=== PATIENT | female | born 1960 | race Caucasian/White ===

== ENCOUNTER 2019-05-07 16:06 | Emergency (ER) | payer MEDICAID, SELFPAY ==
[2019-05-07 16:10] VITALS: BP 150/87; PULSE 87; RESP 16; TEMP 36.7; O2SAT 98; BMI 28.1
--- NOTE | 2019-05-07 16:41 | ED.VISSUMM ---
- ER Visit Summary Date of Service: 05/07/19 Chief Complaint: Sore throat History of Present Illness: The patient is a 59 F who presents with a sore throat that has been getting worse over the past 4 to 5 days. Patient describes her pain is sharp. Patient states she is having a cough with some clear and yellow sputum. Patient denies any fevers or chills. Patient denies any nausea or vomiting. Patient states that today she noted some white exudates on her tonsils as well as over the buccal mucosa bilaterally. Patient states nothing makes her pain better or worse. Physical Examination: Vital signs are stable. Patient is afebrile. Patient is in no acute distress. Oral mucosa is pink and moist. Oropharynx is erythematous. There are some white exudate noted on the tonsils bilaterally. There is also white exudates noted in the buccal mucosa bilaterally. Neck is supple. Trachea is midline. There is no JVD. There is no anterior cervical lymphadenopathy noted. Heart was regular rate and rhythm. Lungs are clear and equal bilaterally. Abdomen is soft and nontender. Test Results: Rapid strep test was obtained and was negative. Emergency Department Course and Treatment: Patient was advised that this is most likely oral candidiasis from her steroid inhalers. Patient was given a prescription for Mycelex troches. Patient was instructed to follow-up with her primary care physician in 5 to 7 days. Patient understood and was agreeable with the plan. All questions were answered. Disposition: Discharge home Impression: Oral candidiasis This note was generated with [employer] dictation software. It may contain incorrect words, spelling, and punctuation that were not noted in review of the chart prior to signing ED Disposition - Plan for ED Patient: Disposition: Home or Assisted Living Diagnosis: Oral candidiasis Instructions: Oral Thrush Referrals: Care Physician,No Primary [Primary Care Provider] - Zafar Benavides MD [STAFF PHYSICIAN] - 3-5 Days
[2019-05-07 19:25] VITALS: BP 134/76; PULSE 87; RESP 19; O2SAT 98
[2019-05-07 19:26] VITALS: RESP 18
== END 2019-05-07 19:27 | disposition home or self-care (01) ==
PROVIDERS: Emergency Provider Emergency Medicine
DX: B37.0 Candidal stomatitis (principal); I10 Essential (primary) hypertension; F41.9 Anxiety disorder, unspecified; F32.9 Major depressive disorder, single episode, unspecified; E03.9 Hypothyroidism, unspecified; E78.00 Pure hypercholesterolemia, unspecified; Z79.899 Other long term (current) drug therapy
CPT/HCPCS: 87880; 99283

== ENCOUNTER → 2020-04-11 13:20 | Outpatient (CLI) | payer MEDICAID, SELFPAY ==
[2020-04-11 13:38] LABS: Absolute Lymphocyte Count 2.67 X10^3/uL (0.83-4.51); Absolute Neutrophil Count 4.9 X10^3/uL (2.0-7.7); Basophil# 0.04 X10^3/uL; Basophil% 0.5 % (0-1); Eosinophil# 0.12 X10^3/uL; Eosinophils% 1.5 % (0-5); Hematocrit 41.6 % (37-47); Hemoglobin 13.7 g/dL (12.0-15.0); Lymphocyte # 2.67 X10^3/ul (4.0); Lymphocyte % 32.3 % (19-41); Mean Corp Hgb Conc 32.9 g/dL (32-36); Mean Corpuscular Hgb 28.3 pg (27.0-32.0); Mean Platelet Vol. 9.5 fl (6.2-12.0); NRBC Flagged by Analyzer 0 % (0-5); Neutrophil # 4.92 X10^3/uL (2.7-7.7); Neutrophil % 59.5 % (47-70); Platelet Count 293 K/mm3 (150-450); RBC Distribution Width CV 12.2 % (11.6-14.6); Red Blood Count 4.84 M/mm3 (4.2-5.4); White Blood Count 8.3 K/mm3 (4.4-11.0)
[2020-04-11 14:12] LABS: Vitamin D,25 Hydroxy 54.1 ng/mL
[2020-04-11 14:36] LABS: AST(SGOT) 24 U/L (15-37); Alanine Aminotransfer ALT/SGPT 29 U/L (13-56); Alkaline Phosphatase 108 U/L (45-117); Anion Gap 6 (5-15); BUN 16 mg/dL (7-18); BUN/Creat Ratio 16.8 RATIO (10-20); Chloride 103 mmol/L (98-107); Cholesterol 240 mg/dL (200); Creatinine, Serum 0.96 mg/dL (0.55-1.02); EST Glomerular Filtration Rate 63 mL/min (>60); Est Glom Filt Rate - Afr Amer 76 mL/min (>60); Globulin 4.2 g/dL (2.2-4.2); Glucose 85 mg/dL (74-106); High Density Lipoprotein 49 mg/dL; Potassium 3.9 mmol/L (3.5-5.1); Protein, Total 8.2 g/dL (6.4-8.2); Sodium Level 137 mmol/L (136-145); T4 Free Direct 1.04 ng/dL (0.76-1.46); Thyroid Stim Hormone (TSH) 1.56 uIU/mL (0.358-3.74); Triglycerides 273 mg/dL; Very Low Density Lipoprotein 55 mg/dL (5-40)
== END ==
PROVIDERS: Referring Provider Family Medicine
DX: I10 Essential (primary) hypertension (principal); E03.9 Hypothyroidism, unspecified; E78.5 Hyperlipidemia, unspecified; F33.0 Major depressive disorder, recurrent, mild; E55.9 Vitamin D deficiency, unspecified
CPT/HCPCS: 36415; 80053; 80061; 82306; 84439; 84443; 85025

== ENCOUNTER → 2020-07-31 12:28 | Outpatient (CLI) | payer MEDICAID, SELFPAY ==
--- NOTE | 2020-07-31 12:31 | BI_ITS ---
MAMMOGRAPHY - BILATERAL SCREENING 3-D TOMOSYNTHESIS REASON FOR EXAM: Female, 60 years old. Routine screening PERTINENT HISTORY: No significant family history. TECHNIQUE: 2-D mammograms and 3-D Tomosynthesis of the breast (s) were performed. CAD was performed. COMPARISON: 2012 FINDINGS: The breast composition is composed of scattered fibroglandular density. Scattered benign calcifications are seen. No dense spiculated masses or suspicious microcalcifications are identified. No architectural distortion is identified. There is no skin thickening or retraction. There has been no significant change since the prior study. BI/SCRN MAMM (CAD)W/FRANCY BILAT IMPRESSION: No mammographic signs of malignancy. Routine yearly mammograms recommended. ASSESSMENT CATEGORY: BIRADS Category 2: Benign. A letter regarding these results will be sent to the patient by the facility within 30 days. FOLLOW UP RECOMMENDATION: Yearly follow up mammogram recommended. (A) Approximately 10% of breast cancers are not detected by mammography. A normal mammogram should not delay biopsy of a clinically suspicious abnormality. Electronically Signed: Lex Clinton MD at 13:39 EDT , Service support ,
== END ==
PROVIDERS: Referring Provider Nurse Practitioner Adult Health; Visit Provider Nurse Practitioner Adult Health
DX: Z12.31 Encounter for screening mammogram for malignant neoplasm of breast (principal)
CPT/HCPCS: 77063; 77067

== ENCOUNTER → 2020-12-14 11:49 | Outpatient (CLI) | payer MEDICAID, SELFPAY ==
[2020-12-14 12:50] LABS: Cholesterol 192 mg/dL (200); High Density Lipoprotein 51 mg/dL; Triglycerides 199 mg/dL; Very Low Density Lipoprotein 40 mg/dL (5-40)
== END ==
PROVIDERS: Referring Provider Nurse Practitioner Adult Health; Visit Provider Nurse Practitioner Adult Health
DX: E78.5 Hyperlipidemia, unspecified (principal)
CPT/HCPCS: 36415; 80061

== ENCOUNTER → 2021-12-27 | Outpatient (CLI) | payer MEDICAID, SELFPAY ==
[2021-12-27 11:27] LABS: Absolute Lymphocyte Count 1.82 X10^3/uL (0.83-4.51); Absolute Neutrophil Count 3.6 X10^3/uL (2.0-7.7); Basophil# 0.05 X10^3/uL; Basophil% 0.8 % (0-1); Eosinophil# 0.12 X10^3/uL; Hematocrit 39.8 % (37-47); Hemoglobin 13.1 g/dL (12.0-15.0); Lymphocyte # 1.82 X10^3/ul (0.83-4.51); Lymphocyte % 29.9 % (19-41); Mean Corp Hgb Conc 32.9 g/dL (32-36); Mean Corpuscular Hgb 28.9 pg (27.0-32.0); Mean Corpuscular Volume 87.7 fL (81-99); Mean Platelet Vol. 9.5 fl (6.2-12.0); Monocyte# 0.52 X10^3/uL; Monocyte% 8.6 % (0-10); NRBC Flagged by Analyzer 0 % (0-5); Neutrophil # 3.55 X10^3/uL (2.7-7.7); Neutrophil % 58.4 % (47-70); Platelet Count 297 K/mm3 (150-450); RBC Distribution Width CV 12.6 % (11.6-14.6); RBC Distribution Width SD 40.6 fl (35.1-43.9); Red Blood Count 4.54 M/mm3 (4.2-5.4); White Blood Count 6.1 K/mm3 (4.4-11.0)
[2021-12-27 12:23] LABS: ALB/GLOB Ratio 0.9 RATIO (0.9-2.4); AST(SGOT) 18 U/L (15-37); Alanine Aminotransfer ALT/SGPT 30 U/L (13-56); Albumin, Serum 3.6 g/dL (3.2-5.0); Alkaline Phosphatase 87 U/L (45-117); Anion Gap 5 (5-15); BUN 16 mg/dL (7-18); BUN/Creat Ratio 19.6 RATIO (10-20); Calcium,Total 9.2 mg/dL (8.5-10.1); Chloride 107 mmol/L (98-107); Cholesterol 192 mg/dL (200); Creatinine, Serum 0.82 mg/dL (0.55-1.02); EST Glomerular Filtration Rate 75 mL/min (>60); Est Glom Filt Rate - Afr Amer 91 mL/min (>60); Glucose 79 mg/dL (74-106); High Density Lipoprotein 60 mg/dL; Potassium 4.1 mmol/L (3.5-5.1); Protein, Total 7.6 g/dL (6.4-8.2); Sodium Level 140 mmol/L (136-145); Triglycerides 118 mg/dL; Very Low Density Lipoprotein 24 mg/dL (5-40)
[2021-12-30 19:38] LABS: Vitamin D 1,25-Dihydroxy 59.1 pg/mL (24.8-81.5)
== END | disposition home or self-care (01) ==
DX: I10 Essential (primary) hypertension (principal); E03.9 Hypothyroidism, unspecified; E78.5 Hyperlipidemia, unspecified; E55.9 Vitamin D deficiency, unspecified
CPT/HCPCS: 36415; 80053; 80061; 82652; 84443; 85025

== ENCOUNTER → 2022-09-08 | Outpatient (CLI) | payer MEDICAID, SELFPAY ==
--- NOTE | 2022-09-08 10:11 | BI_ITS ---
MAMMOGRAPHY - BILATERAL SCREENING REASON FOR EXAM: Female, 62 years old. Routine annual screening examination. PERTINENT HISTORY: Grandmother with breast cancer. TECHNIQUE: Digital bilateral breast francy (3D mammographic acquisition) in the CC and MLO projections. 2-D mediolateral oblique (MLO) and craniocaudad (CC) views of both breasts were obtained. CAD: Full Field Digital Mammography with Computer Added Detection was performed. COMPARISON: Comparison is made with prior study of July 31, 2020 and August 15, 2011. FINDINGS: Breast Composition: There are scattered areas of fibroglandular density. There are no dominant masses or suspicious calcifications. No other significant abnormalities are identified. There has been no significant change since the prior study. BI/SCRN MAMM (CAD)W/FRANCY BILAT IMPRESSION: Stable bilateral screening mammogram. Yearly follow-up mammogram recommended. (A) ASSESSMENT CATEGORY: BIRADS Category 1: Negative. A letter regarding these results will be sent to the patient by the facility within 30 days. Approximately 10% of breast cancers are not detected by mammography. A normal mammogram should not delay biopsy of a clinically suspicious abnormality. [id number] Electronically Signed: Beto Love MD at 12:14 EDT ,
== END | disposition home or self-care (01) ==
LOC: OPBI 10:08
PROVIDERS: Referring Provider Nurse Practitioner Family; Visit Provider Nurse Practitioner Family
DX: Z12.31 Encounter for screening mammogram for malignant neoplasm of breast (principal); Z80.3 Family history of malignant neoplasm of breast
CPT/HCPCS: 77063; 77067

== ENCOUNTER 2023-03-05 19:55 | Emergency (ER) | payer MEDICAID, SELFPAY ==
[2023-03-05 19:56] VITALS: BP 186/124; PULSE 68; RESP 16; TEMP 36.6; O2SAT 98; BMI 27.6
--- NOTE | 2023-03-05 20:49 | EKG12_ITS ---
Test Reason : CP Blood Pressure : / mmHG Vent. Rate : 063 BPM Atrial Rate : 063 BPM P-R Int : 188 ms QRS Dur : 094 ms QT Int : 412 ms P-R-T Axes : 065 043 063 degrees QTc Int : 421 ms Normal sinus rhythm Nonspecific ST abnormality Abnormal ECG Confirmed by AMANDA PUTNAM, STEF ([id number]), film editor NORMA PAULINO ([id number]) on 03/06/2023 2:03:58 PM Referred By: Confirmed By:STEF PATEL MD
--- NOTE | 2023-03-05 21:25 | RAD_ITS ---
EXAM: XR CHEST, 1 VIEW CLINICAL INDICATION: chest pain TECHNIQUE: Frontal view of the chest. COMPARISON: No relevant prior studies available. FINDINGS: LUNGS AND PLEURAL SPACES: Biapical scarring. No consolidation or edema. No pneumothorax. No effusion. HEART: Unremarkable. Cardiac silhouette not enlarged. MEDIASTINUM: Central airways and mediastinal contour are unremarkable. BONES/JOINTS: Degenerative changes of the spine and acromioclavicular joints. No acute fracture. SOFT TISSUES: Unremarkable. RAD/Chest 1 View (Portable) IMPRESSION: No radiographic evidence of acute cardiopulmonary disease. Electronically Signed: Rodriguez Clark MD at 21:56 EST ,
[2023-03-05 21:27] LABS: Absolute Neutrophil Count 5.1 X10^3/uL (2.0-7.7); Basophil# 0.05 X10^3/uL; Basophil% 0.6 % (0-1); Eosinophil# 0.23 X10^3/uL; Eosinophils% 2.8 % (0-5); Hematocrit 40.2 % (37-47); Hemoglobin 13.2 g/dL (12.0-15.0); Lymphocyte % 28.7 % (19-41); Mean Corp Hgb Conc 32.8 g/dL (32-36); Mean Corpuscular Hgb 27.9 pg (27.0-32.0); Mean Platelet Vol. 9.7 fl (6.2-12.0); Monocyte# 0.58 X10^3/uL; Monocyte% 6.9 % (0-10); NRBC Flagged by Analyzer 0 % (0-5); Neutrophil # 5.05 X10^3/uL (2.7-7.7); Neutrophil % 60.5 % (47-70); Platelet Count 278 K/mm3 (150-450); RBC Distribution Width CV 11.8 % (11.6-14.6); RBC Distribution Width SD 36.2 fl (35.1-43.9); Red Blood Count 4.73 M/mm3 (4.2-5.4); White Blood Count 8.4 K/mm3 (4.4-11.0)
[2023-03-05 21:48] LABS: Anion Gap 4 (5-15); BUN 18 mg/dL (7-18); BUN/Creat Ratio 23.3 RATIO (10-20); Calcium,Total 9.8 mg/dL (8.5-10.1); Chloride 108 mmol/L (98-107); Creatinine, Serum 0.77 mg/dL (0.55-1.02); EST Glomerular Filtration Rate 80 mL/min (>60); Est Glom Filt Rate - Afr Amer 97 mL/min (>60); Estimated Creatinine Clearance 70.01 ml/min; Glucose 85 mg/dL (74-106); Potassium 3.5 mmol/L (3.5-5.1); Sodium Level 142 mmol/L (136-145); Troponin-I HS (w/2H Reflex) 6 pg/mL (3.0-54.0)
[2023-03-05 21:56] VITALS: BP 182/113; PULSE 61; RESP 19; O2SAT 99
--- NOTE | 2023-03-05 22:44 | EX.ED.DYSGE1 ---
HPI History of Present Illness Chief Complaint: Hypertension Narrative Narrative: 62-year-old female presenting for evaluation of elevated blood pressure. Patient states she normally takes lisinopril 5 mg p.o. daily and she also takes clonidine 0.3 mg daily as well at night to help with menopause symptoms. [facility]. Patient was over there today and noted that her blood pressure was 138/88 is concerned with how high this was so she checked her blood pressure again and it was 170/100. Patient states she does not have any chest pain or shortness of breath. No nausea or vomiting. She is not having severe headaches. She is not dizzy or lightheaded. [facility] Medical History (Updated 03/05/23 @ 22:53 by Kristina Zambrano) Hypertension Home Medications cetirizine 10 mg tablet 10 mg PO DAILY PRN Allergies 05/07/19 [History Last Taken Unknown] clonidine HCl 0.3 mg tablet 0.3 mg PO DAILY 05/07/19 [History Last Taken Unknown] clotrimazole 10 mg chastity 10 mg MUCOUS MEM 5X/DAY ##30 05/07/19 [Rx Last Taken Unknown] levothyroxine 88 mcg tablet 88 mcg PO DAILY 05/07/19 [History Last Taken Unknown] lisinopril 5 mg tablet 5 mg PO DAILY 05/07/19 [History Last Taken Unknown] pravastatin 40 mg tablet 40 mg PO QHS 05/07/19 [History Last Taken Unknown] trazodone 100 mg tablet 150 mg PO QHS 05/07/19 [History Last Taken Unknown] venlafaxine 37.5 mg capsule,extended release 24 hr 75 mg PO BID 05/07/19 [History Last Taken Unknown] Allergy/AdvReac Type Severity Reaction Status Date / Time No Known Allergies Allergy Verified 03/05/23 19:59 Social History Smoking Status: Former smoker ROS ROS ED Review of Systems ROS Unobtainable: due to encephalopathy Constitutional Constitutional ED: Denies chills or fever(s) Eyes Eyes: Denies change in vision or diplopia ENT ENT ED: Denies rhinorrhea or sore throat Cardiovascular Cardiovascular: Denies chest pain or palpitations Respiratory/Chest Respiratory/Chest: Denies cough or dyspnea Gastrointestinal Gastrointestinal: Denies abdominal pain, constipation or nausea Genitourinary Genitourinary ED: Denies dysuria or hematuria Musculoskeletal Musculoskeletal: Denies arthralgias Integumentary Denies abscess or Abrasions Neurologic Neurologic: Denies headache(s) or paresthesias Psychiatric Psychiatric: Reports anxiety; Denies depression or suicidal ideation EXAM Physical Exam Const Vital Signs: 03/05/23 19:56 03/05/23 21:56 03/05/23 22:52 Temperature 97.9 F Temperature Source Temporal Pulse Rate 68 61 Respiratory Rate 16 19 H Respiratory Effort Respiratory Pattern Blood Pressure 186/124 H 182/113 H Blood Pressure Mean 144 136 Pulse Ox 98 99 97 Oxygen Delivery Method Room Air Room Air Room Air 03/05/23 22:52 03/05/23 23:00 03/05/23 23:34 Temperature Temperature Source Pulse Rate 62 62 Respiratory Rate 14 18 Respiratory Effort Normal Respiratory Pattern Normal Blood Pressure 173/110 H 173/110 H Blood Pressure Mean 131 131 Pulse Ox 98 98 Oxygen Delivery Method Room Air Positive well nourished General Appearance ED: NAD; Negative for pallor HEENT Reports moist mucous membranes Eyes PERRL and EOMs intact bilaterally Chest Wall inspection of chest normal Resp normal respiratory effort Auscultation: Negative for rales, rhonchi or wheezes Cardio regular rate and regular rhythm GI normal to inspection, nondistended, normoactive bowel sounds Extremity normal to inspection Neuro oriented x3 and CN's II-XII intact bilaterally Sensorium / Orientation: alert Psych mental status grossly normal Skin no rashes or lesions noted and no wounds General Skin Exam: Negative for jaundice or pallor MDM MDM MDM Narrative Medical decision making narrative: 62-year-old female presenting with elevated blood pressures. Her arrival blood pressure is 186/124. She states it was 170/100 prior to coming and was lower than that earlier but she states she felt like she was anxious about her blood pressure being high. She takes lisinopril 5 mg daily and clonidine at night for symptom control of menopause. Differential includes menopause, hypertension, anxiety, dehydration, electro abnormalities, dysrhythmia. CBC was obtained to assess white blood cell count, hemoglobin, platelets. BMP to assess renal function, electrolytes. High-sensitivity troponin and EKG to assess for ischemia/dysrhythmia. Chest x-ray was obtained to assess for pneumonia. Patient not having any symptoms and currently comfortable. We put her monitor with her blood pressure to be cycled. She was given her nighttime dose of clonidine which she normally takes for menopause symptoms and as she states she missed this about 2 hours ago. Lab work was unremarkable. High-sensitivity troponin was 6. EKG on my interpretation shows normal sinus rhythm with a ventricular rate of 63 bpm without sign of ischemic change or ectopy on my interpretation. Patient's blood pressure came down to 170/100. She wanted to leave at this point. She states she can take her clonidine at home. I feel this is reasonable as the patient's blood pressure is likely falsely elevated as the patient is very anxious today and she reports that she had a normal blood pressure earlier before coming in. Patient will be discharged home with instructions to keep blood pressure diary and return precautions were discussed. Impression: 1. Hypertension Lab Data Labs: Laboratory Results - last 24 hr 03/05/23 21:16 WBC 8.4 RBC 4.73 Hgb 13.2 Hct 40.2 MCV 85.0 MCH 27.9 MCHC 32.8 RDW Std Deviation 36.2 RDW Coeff of Karen 11.8 Plt Count 278 MPV 9.7 Immature Gran % (Auto) 0.500 Neut % (Auto) 60.5 Lymph % (Auto) 28.7 [place] % (Auto) 6.9 Eos % (Auto) 2.8 Baso % (Auto) 0.6 Absolute Neuts (auto) 5.1 Absolute Lymphs (auto) 2.40 Nucleated RBC % 0 Sodium 142 Potassium 3.5 Chloride 108 H Carbon Dioxide 30.0 Anion Gap 4 L BUN 18 Creatinine 0.77 Estim Creat Clear Calc 70.01 Est GFR (MDRD) Af Amer 97 Est GFR (MDRD) Non-Af 80 BUN/Creatinine Ratio 23.3 H Glucose 85 Calcium 9.8 Troponin I High Sens 6 Radiography Diagnostic Testing: Clinical Impression(s) from Imaging Studies Chest X-Ray 03/05/23 21:25 IMPRESSION: No radiographic evidence of acute cardiopulmonary disease. Electronically Signed: Rodriguez Clark MD at 21:56 EST , Discharge Plan Triage Chief Complaint: Hypertension ED Provider: Joey Madsen Dx/Rx/DC Orders Instructions: ED Hypertension, Established Prescriptions: No Action venlafaxine 37.5 MG capsule 75 mg PO BID cetirizine 10 MG tablet 10 mg PO DAILY PRN (Reason: Allergies) pravastatin 40 MG tablet 40 mg PO QHS clonidine HCl 0.3 mg tablet 0.3 mg PO DAILY levothyroxine 88 MCG tablet 88 mcg PO DAILY trazodone 100 MG tablet 150 mg PO QHS lisinopril 5 MG tablet 5 mg PO DAILY clotrimazole 10 MG chastity 10 mg MUCOUS MEM 5X/DAY Qty: 30 0RF Primary Care Provider: [facility] Miah Gallagher Referrals: [facility],Miah Morales [Primary Care Provider] - Disposition Disposition: Home, Self Care Discharge Date/Time: 03/05/23 23:36
[2023-03-05 22:52] VITALS: O2SAT 97
[2023-03-05 23:00] VITALS: BP 173/110; PULSE 62; RESP 14; O2SAT 98
[2023-03-05 23:24] LABS: Reflex Troponin-HS? (from REC) Y
[2023-03-05 23:34] VITALS: BP 173/110; PULSE 62; RESP 18; O2SAT 98
== END 2023-03-05 23:36 | disposition home or self-care (01) ==
PROVIDERS: Emergency Provider Student in an Organized Health Care Education/Training Program; Visit Provider Student in an Organized Health Care Education/Training Program
DX: I10 Essential (primary) hypertension (principal); Z87.891 Personal history of nicotine dependence; Z79.899 Other long term (current) drug therapy
CPT/HCPCS: 71045; 80048; 84484; 85025; 93005; 99283; A4216

== ENCOUNTER → 2023-03-23 | Outpatient (CLI) | payer MEDICAID, SELFPAY ==
[2023-03-23 09:56] LABS: Absolute Lymphocyte Count 2.59 X10^3/uL (0.83-4.51); Absolute Neutrophil Count 5.2 X10^3/uL (2.0-7.7); Basophil# 0.06 X10^3/uL; Basophil% 0.7 % (0-1); Eosinophil# 0.17 X10^3/uL; Eosinophils% 1.9 % (0-5); Hematocrit 42.5 % (37-47); Hemoglobin 13.7 g/dL (12.0-15.0); Lymphocyte # 2.59 X10^3/ul (0.83-4.51); Lymphocyte % 29.5 % (19-41); Mean Corp Hgb Conc 32.2 g/dL (32-36); Mean Corpuscular Hgb 27.3 pg (27.0-32.0); Mean Corpuscular Volume 84.8 fL (81-99); Mean Platelet Vol. 9.5 fl (6.2-12.0); NRBC Flagged by Analyzer 0 % (0-5); Neutrophil % 59.3 % (47-70); Platelet Count 340 K/mm3 (150-450); RBC Distribution Width CV 11.9 % (11.6-14.6); RBC Distribution Width SD 35.6 fl (35.1-43.9); Red Blood Count 5.01 M/mm3 (4.2-5.4); White Blood Count 8.8 K/mm3 (4.4-11.0)
--- OUTSIDE RECORDS SUMMARY | 2023-03-23 09:57 | XMS RPT_ITS | CCD ---
Author Name Unknown Address [address] [place] [address] Organization [facility] Care Team Providers Care Trolley Operator Name Role Phone Meli Miller CNP Unavailable MARCIAON SERRATO Referring Unavailable Meli Miller CNP Unavailable Medications Current Medications Medication Drug Class(es) Dates Sig (Normalized) Sig (Original) amoxicillin 875 mg / clavulanate 125 mg oral tablet (4 sources) Penicillin-class Antibacterial Start: 01-25-2022 End: 01-30-2022 take 1 tablet by mouth twice daily amoxicillin-clavu lanic acid (AUGMENTIN) 875-125 mg per tablet Indications: Acute non-recurrent sinusitis, unspecified location Take 1 tablet by mouth twice daily for 5 days. 10 tablet 0 01/25/2022 01/30/2022 Active Completed/Discontinued Medications Medication Drug Class(es) Dates Sig (Normalized) Sig (Original) cetirizine hydrochloride 10 mg oral tablet (5 sources) Histamine-1 Receptor Antagonist Start: 09-02-2019 take 1 tablet by mouth once daily cetirizine (ZYRTEC) 10 mg tablet Indications: Seasonal allergic rhinitis, unspecified trigger Take 1 tablet by mouth once daily. 30 tablet 0 09/02/2019 Active Problems Active Problems Problem Classification Problem Date Documented Da te Episodic/Chronic Disorders of teeth and jaw (1 source) Toothache; Translations: [Other specified disorders of teeth and supporting structures] Episodic Nausea and vomiting (1 source) Vomiting without nausea; Translations: [Vomiting without nausea] Episodic Other lower respiratory disease (1 source) Cough; Translations: [Acute cough] Episodic Other nervous system disorders (1 source) Other chronic pain; Translations: [Neck pain, chronic] Onset: 10-17-2021 Chronic Other upper respiratory infections (2 sources) Acute upper respiratory infection; Translations: [Acute upper respiratory infection, unspecified] Episodic Past or Other Problems Problem Classification Problem Date Documented Da te Episodic/Chronic Spondylosis; intervertebral disc disorders; other back problems (2 sources) Chronic neck pain; Translations: [Cervicalgia] Onset: 10-17-2021 Episodic Results Test Name Value Interpretation Reference Range Facil ity Vital Signs Date Time Vital Sign Value Performing Clinician Mickiei daniele 01-25-2022 12:37-0500 Body temperature 97 [degF] Marciano Serrato MD Work Phone: [facility] 01-25-2022 12:37-0500 Body weight 74.48 kg Marciano Serrato MD Work Phone: [facility] 01-25-2022 12:37-0500 Diastolic blood pressure 98 mm[Hg] Marciano Serrato MD Work Phone: [facility] 01-25-2022 12:37-0500 Heart rate 73 /min Marciano Serrato MD Work Phone: [facility] 01-25-2022 12:37-0500 Respiratory rate 20 /min Marciano Serrato MD Work Phone: [facility] 01-25-2022 12:37-0500 SaO2% (BldA) [Mass fraction] 98 % Marciano Serrato MD Work Phone: [facility] 01-25-2022 12:37-0500 Systolic blood pressure 148 mm[Hg] Marciano Serrato MD Work Phone: [facility] 11-04-2021 09:57-0400 Body temperature 98.8 [degF] Belén Florence APRN.HOME SCHOOL LIAISON OFFICER Work Phone: [facility] 11-04-2021 09:57-0400 Body weight 72.58 kg Belén Florence APRN.HOME SCHOOL LIAISON OFFICER Work Phone: [facility] 11-04-2021 09:57-0400 Diastolic blood pressure 80 mm[Hg] Belén Florence HVAC SERVICE TECH.HOME SCHOOL LIAISON OFFICER Work Phone: [facility] 11-04-2021 09:57-0400 Heart rate 88 /min Belén Florence HVAC SERVICE TECH.HOME SCHOOL LIAISON OFFICER Work Phone: [facility] 11-04-2021 09:57-0400 Respiratory rate 16 /min Belén Florence HVAC SERVICE TECH.HOME SCHOOL LIAISON OFFICER Work Phone: [facility] 11-04-2021 09:57-0400 SaO2% (BldA) [Mass fraction] 98 % Belén Florence HVAC SERVICE TECH.HOME SCHOOL LIAISON OFFICER Work Phone: [facility] 11-04-2021 09:57-0400 Systolic blood pressure 122 mm[Hg] Belén Florence HVAC SERVICE TECH.HOME SCHOOL LIAISON OFFICER Work Phone: [facility] 10-17-2021 12:08-0400 Body temperature 98.6 [degF] Marciano Serrato MD Work Phone: [facility] 10-17-2021 12:08-0400 Body weight 72.21 kg Marciano Serrato MD Work Phone: [facility] 10-17-2021 12:08-0400 Diastolic blood pressure 82 mm[Hg] Marciano Serrato MD Work Phone: [facility] 10-17-2021 12:08-0400 Heart rate 88 /min Marciano Serrato MD Work Phone: [facility] 10-17-2021 12:08-0400 Respiratory rate 18 /min Marciano Serrato MD Work Phone: [facility] 10-17-2021 12:08-0400 SaO2% (BldA) [Mass fraction] 97 % Marciano Serrato MD Work Phone: [facility] 10-17-2021 12:08-0400 Systolic blood pressure 124 mm[Hg] Marciano Serrato MD Work Phone: [facility] Encounters Encounter Date Encounter Type Care Provider Facility Start: 01-26-2022 Telephone encounter Renée Kameron Quinonez HVAC SERVICE TECH.HOME SCHOOL LIAISON OFFICER Work Phone: [facility] Plan of Treatment Date Care Activity Detail Author Start: 08-24-2029 Urine microalbumin profile DTAP,TDAP,TD (2 - Td or Tdap) [facility] Start: 01-25-2022 End: 02-08-2022 SARS-CoV-2 (COVID-19) RNA [Presence] in Respiratory specimen by LOBO with probe detection 2019 CORONAVIRUS Microbiology Routine URI, acute Acute non-recurrent sinusitis, unspecified location Expected: 01/25/2022, Expires: 02/08/[address] [facility] Work Phone: Immunizations Immunization Date Immunization Notes Care Provider Fa cilikumar 08-25-2019 tetanus toxoid, redu traci diphtheria toxoid, and acellular pertussis vaccine, adsorbed Marciano Serrato MD Work Phone: [facility] Payers Date Payer Category Payer Medicaid [employer] [facility] [id number] 2015-Present [phone] [address] [place] [address] Medicaid [id number] 2015 Medicaid [id number] 2015 Medicaid [id number] Social History Date Type Detail Facility Start: 10-02-2015 End: 11-04-2021 Tobacco smoking status NHIS Never smoked tobacco [facility] Start: 10-02-2015 End: 11-04-2021 Tobacco use and exposure Smokeless tobacco non-user [facility] Start: 10-17-2021 End: 01-25-2022 Alcohol intake Lifetime non-drinker (finding) [facility] Start: 10-17-2021 History SDOH Alcohol Frequency 1 [facility] Start: 1960 Sex Assigned At Not on file C [facility] Start: 10-07-2021 End: 11-04-2021 Exposure to SARS-CoV-2 (event) Not sure [facility] Clinical Notes 10-17-2021 to 01-26-2022 Telephone Encounter - Carmen Farr LPN - 01/26/2022 3:40 PM ESTTelephone Encounter - Carmen Farr LPN - 01/26/2022 12:43 PM Mello Serrato MD - 01/25/2022 12:56 PM ESTPatient Instructions Note Date & Type Note [facility] 01-26-2022 Miscellaneous Notes Phone call placed, provider advised current ATB, Robitussin continue as advised no additional Rx sent. Patient verbalized understanding, agreed with plan of care. Carmen Farr LPN documented in this encounter [facility] 01-26-2022 Miscellaneous Notes Phone call received patient advised (see prior provider encounter) Patient verbalized understanding, reported coughing all night taking Robitussin, unrelieved sxs, currently no PCP requested Rx to be sent to [facility]. Carmen Farr LPN documented in this encounter [facility] 01-25-2022 Note HNO ID: [id number] Author: Marciano Serrato MD Service: ? Author Type: Physician Type: Progress Notes Filed: 01/25/2022 2:52 PM Note Text: Patient presents with: Cough: ST x2 weeks HPI: Feeling sick for over a week. Cough and sore throat symptoms worsening the last 3 days. Positive symptoms: Cough, Sore throat, Sinus pressure, Nasal Congestion, Rhinorrhea, Post nasal drainage, Feverish, Chills, Fatigue, Negative symptoms: Shortness of breath, Chest tightness, Headache, Nausea, Vomiting, Diarrhea, OTC: Johann Has not had known COVID infection. PAST MEDICAL HISTORY Diagnosis Date Anxiety and depression Hyperlipidemia Hypertension Hypothyroidism MEDICATIONS: Current Outpatient Medications Medication Sig levothyroxine (SYNTHROID) 75 mcg tablet Take 75 mcg by mouth once daily. lisinopril (ZESTRIL, PRINIVIL) 5 mg tablet Take by mouth. pravastatin (PRAVACHOL) 40 mg tablet Take by mouth. traZODone (DESYREL) 100 mg tablet Take by mouth. venlafaxine ER (EFFEXOR XR) 37.5 mg 24 hr capsule Take by mouth. cloNIDine HCl (CATAPRES) 0.3 mg tablet DAILY ibuprofen (MOTRIN ORAL) Take by mouth. cetirizine (ZYRTEC) 10 mg tablet Take 1 tablet by mouth once daily. No current facility-administered medications for this visit. ALLERGIES: ALLERGIES No Known Allergies VITALS: BP 148/98 Pulse 73 Temp 36.1 ?C (97 ?F) Resp 20 Wt 74.5 kg (164 lb 3.2 oz) SpO2 98% PHYSICAL EXAM: GEN: mildly ill appearing HEENT: PERRL, EOMI, conjunctiva clear Ears: canals clear. TMs without erythema, bulge, or effusion Sinuses: non-tender frontal sinus, non-tender maxillary sinuses Throat: moist mucous membranes, mild erythema, no exudate Neck: supple, no thyromegaly, no lymphadenopathy HEART: regular rate and rhythm, no murmurs LUNGS: clear to auscultation, no wheezes or crackles, no increased WOB ASSESSMENT/PLAN: 1. URI, acute - ICD9: 465.9, ICD10: J06.9 (primary diagnosis) - suspect new viral URI, differential includes COVID-19 and secondary bacterial infection - Discussed supportive care treatment with home isolation, rest, cold medicine, and analgesia. - Red flags to seek further treatment include chest pain, shortness of breath, and lethargy; in the ER if severe. - 2019 CORONAVIRUS 2. Acute non-recurrent sinusitis, unspecified location - ICD9: 461.9, ICD10: J01.90 - AMOXICILLIN 875 MG-POTASSIUM CLAVULANATE 125 MG TABLET - 2019 CORONAVIRUS Marciano Serrato MD [facility] 01-25-2022 History of Presen t illness Narrative Patient presents with: Cough: ST x2 weeks HPI: Feeling sick for over a week. Cough and sore throat symptoms worsening the last 3 days. Positive symptoms: Cough, Sore throat, Sinus pressure, Nasal Congestion, Rhinorrhea, Post nasal drainage, Feverish, Chills, Fatigue, Negative symptoms: Shortness of breath, Chest tightness, Headache, Nausea, Vomiting, Diarrhea, OTC: Robitussin Has not had known COVID infection. PAST MEDICAL HISTORY Diagnosis Date Anxiety and depression Hyperlipidemia Hypertension Hypothyroidism MEDICATIONS: Current Outpatient Medications Medication Sig levothyroxine (SYNTHROID) 75 mcg tablet Take 75 mcg by mouth once daily. lisinopril (ZESTRIL, PRINIVIL) 5 mg tablet Take by mouth. pravastatin (PRAVACHOL) 40 mg tablet Take by mouth. traZODone (DESYREL) 100 mg tablet Take by mouth. venlafaxine ER (EFFEXOR XR) 37.5 mg 24 hr capsule Take by mouth. cloNIDine HCl (CATAPRES) 0.3 mg tablet DAILY ibuprofen (MOTRIN ORAL) Take by mouth. cetirizine (ZYRTEC) 10 mg tablet Take 1 tablet by mouth once daily. No current facility-administered medications for this visit. ALLERGIES: ALLERGIES No Known Allergies VITALS: BP 148/98 Pulse 73 Temp 36.1 C (97 F) Resp 20 Wt 74.5 kg (164 lb 3.2 oz) SpO2 98% PHYSICAL EXAM: GEN: mildly ill appearing HEENT: PERRL, EOMI, conjunctiva clear Ears: canals clear. TMs without erythema, bulge, or effusion Sinuses: non-tender frontal sinus, non-tender maxillary sinuses Throat: moist mucous membranes, mild erythema, no exudate Neck: supple, no thyromegaly, no lymphadenopathy HEART: regular rate and rhythm, no murmurs LUNGS: clear to auscultation, no wheezes or crackles, no increased WOB ASSESSMENT/PLAN: 1. URI, acute - ICD9: 465.9, ICD10: J06.9 (primary diagnosis) - suspect new viral URI, differential includes COVID-19 and secondary bacterial infection - Discussed supportive care treatment with home isolation, rest, cold medicine, and analgesia. - Red flags to seek further treatment include chest pain, shortness of breath, and lethargy; in the ER if severe. - 2019 CORONAVIRUS 2. Acute non-recurrent sinusitis, unspecified location - ICD9: 461.9, ICD10: J01.90 - AMOXICILLIN 875 MG-POTASSIUM CLAVULANATE 125 MG TABLET - 2019 CORONAVIRUS Marciano Serrato MD documented in this encounter [facility] 11-04-2021 Note HNO ID: [id number] Author: Belén Florence APRN.HOME SCHOOL LIAISON OFFICER Service: ? Author Type: Nurse Practitioner Type: Progress Notes Filed: 11/04/2021 10:51 AM Note Text: This note was created using VidBidriter. Subjective Jose Trinh is a 61 year old female. 61 year old female with PMH hypothyroid, HTN and depression presents with complaints of dental pain. Acute onset months ago Lower tooth States that her lower tooth has been cracked. +pain and sensitivity +enlarged left lymph node States she has been using specialized tooth paste, Anbesol, Denies inability to open or close. Denies difficulty handling secretions. Denies fever or chills. States that she has an appointment with dentist at end of November. The history is provided by the patient. No speech language therapist was used. Dental Problem This is a new problem. The current episode started more than 1 month ago. The problem occurs constantly. The problem has been gradually worsening. Associated symptoms include swollen glands. Pertinent negatives include no abdominal pain, anorexia, arthralgias, change in bowel habit, chest pain, chills, congestion, coughing, diaphoresis, fatigue, fever, headaches, joint swelling, myalgias, nausea, neck pain, numbness, rash, sore throat, urinary symptoms, vertigo, visual change, vomiting or weakness. Nothing aggravates the symptoms. She has tried acetaminophen (anbesol) for the symptoms. The treatment provided no relief. PAST MEDICAL HISTORY Diagnosis Date Anxiety and depression Hyperlipidemia Hypertension Hypothyroidism PAST SURGICAL HISTORY Procedure Laterality Date APPENDECTOMY ALLERGIES Patient has no known allergies. MEDICATIONS ibuprofen (MOTRIN ORAL) Take by mouth. cyclobenzaprine (FLEXERIL) 10 mg tablet Take 1 tablet by mouth three times daily as needed. cetirizine (ZYRTEC) 10 mg tablet Take 1 tablet by mouth once daily. LISINOPRIL ORAL Take by mouth. TRAZODONE HCL (TRAZODONE ORAL) Take by mouth. PRAVASTATIN SODIUM (PRAVASTATIN ORAL) Take by mouth. LEVOTHYROXINE SODIUM (LEVOTHYROXINE ORAL) Take by mouth. cloNIDine HCl (CATAPRES) 0.3 mg tablet Take 0.3 mg by mouth twice daily. VENLAFAXINE HCL (EFFEXOR XR ORAL) Take by mouth. amoxicillin-clavulanic acid (AUGMENTIN) 875-125 mg per tablet Take 1 tablet by mouth twice daily for 7 days. No family history on file. Social History Tobacco Use Smoking status: Never Smokeless tobacco: Never Substance Use Topics Alcohol use: Never Drug use: Never Review of Systems Constitutional: Negative for chills, diaphoresis, fatigue and fever. HENT: Positive for dental problem. Negative for congestion, postnasal drip, sinus pressure, sinus pain and sore throat. Eyes: Negative for photophobia, pain, discharge, redness and itching. Respiratory: Negative for apnea, cough, choking and chest tightness. Cardiovascular: Negative for chest pain, palpitations and leg swelling. Gastrointestinal: Positive for anal bleeding. Negative for abdominal pain, anorexia, change in bowel habit, constipation, diarrhea, nausea and vomiting. Musculoskeletal: Negative for arthralgias, joint swelling, myalgias and neck pain. Skin: Negative for color change, pallor and rash. Allergic/Immunologic: Negative for environmental allergies, food allergies and immunocompromised state. Neurological: Negative for dizziness, vertigo, facial asymmetry, weakness, light-headedness, numbness and headaches. Hematological: Negative for adenopathy. Does not bruise/bleed easily. Psychiatric/Behavioral: Negative for agitation and behavioral problems. Objective BP 122/80 Pulse 88 Temp 37.1 ?C (98.8 ?F) Resp 16 Wt 72.6 kg (160 lb) SpO2 98% Physical Exam Vitals and nursing note reviewed. Constitutional: General: She is not in acute distress. Appearance: Normal appearance. She is normal weight. She is not ill-appearing, toxic-appearing or diaphoretic. HENT: Head: Normocephalic and atraumatic. Right Ear: Ear canal and external ear normal. Left Ear: Ear canal and external ear normal. Nose: Nose normal. No congestion or rhinorrhea. Mouth/Throat: Mouth: Mucous membranes are moist. Pharynx: No oropharyngeal exudate or posterior oropharyngeal erythema. Eyes: General: Right eye: No discharge. Left eye: No discharge. Extraocular Movements: Extraocular movements intact. Conjunctiva/sclera: Conjunctivae normal. Pupils: Pupils are equal, round, and reactive to light. Cardiovascular: Rate and Rhythm: Normal rate and regular rhythm. Pulses: Normal pulses. Heart sounds: Normal heart sounds. No murmur heard. No friction rub. Pulmonary: Effort: Pulmonary effort is normal. No respiratory distress. Breath sounds: Normal breath sounds. No stridor. No wheezing, rhonchi or rales. Chest: Chest wall: No tenderness. Abdominal: General: Abdomen is flat. There is no distension. Palpations: Abdomen is soft. There is no mass. Tende (more content not included)... [facility] 11-04-2021 Instructions Belén Florence APRN.HOME SCHOOL LIAISON OFFICER - 11/04/2021 10:09 AM EDT Dental Care Services Here are low cost places you can go for dental care: [facility] [address] [facility]- [phone] Services:Extractions only- No wisdom teeth Hours: - 4:15 P.M. Fee: Free- Donations are accepted [facility]) [address] [facility] ([address]) Services: Health history, exam, cleaning, X-Rays, patient education and nutritional counseling. Hours: Varies with the school year. By appointment only. Fee: Over 12 years of age, $10.00; Under 12 year of age $6.00 [facility] [address] [facility] ([facility]): [phone] [facility]): [phone] (Note: These are the only [facility] which offer dental services) Services: Full dental services Hours: 8:30 a.m. to 5:30 p.m., Thursday through Thursday. By appointment. Fee: Sliding Scales and Medicaid. Bring ID and proof of income. [facility] [address] [phone]) Services: Full dental services. Hours: By appointment only. Fee: [place] and Medicaid. Bring ID and proof of income. [facility] [address] [phone] Services: Full dental services. Hours: 8:15 a.m.- 5:00 p.m. By appointment only. Fee: Flat fee. Medicaid and insurances. Bring ID and proof of income. [facility]: By main entrance of [facility] [phone] Services: Full dental services. Hours:Varies with school year. Call for appointment. Fee: Flat fee. Medicaid and insurances. Bring ID and proof of income. [facility] [address] (Between [place] and [place]) [phone] Services: Full dental services. Hours: 8:30 a.m.-4:00 p.m. Thursday through Thursday. Appointments recommended. Emergency walk ins- 8:30 a.m.- 11:15 a.m. and 2:00 p.m-3:15 p.m. Fee: [place] and Medicaid. Bring ID and proof of income. [facility] [address] [facility] [phone] Services: Full dental services. Hours: 9:00 a.m.-4:45 p.m. Thursday through Thursday. Appointments and emergency walk in. Fee: [place]iding Scales and Medicaid. Bring ID and proof of income. documented in this encounter [facility] 11-04-2021 History of Presen t illness Narrative Images from the original note were not included. This note was created using VidBidriter. Subjective Jose Trinh is a 61 year old female. 61 year old female with PMH hypothyroid, HTN and depression presents with complaints of dental pain. Acute onset months ago Lower tooth States that her lower tooth has been cracked. +pain and sensitivity +enlarged left lymph node States she has been using specialized tooth paste, Anbesol, Denies inability to open or close. Denies difficulty handling secretions. Denies fever or chills. States that she has an appointment with dentist at end of November. The history is provided by the patient. No speech language therapist was used. Dental Problem This is a new problem. The current episode started more than 1 month ago. The problem occurs constantly. The problem has been gradually worsening. Associated symptoms include swollen glands. Pertinent negatives include no abdominal pain, anorexia, arthralgias, change in bowel habit, chest pain, chills, congestion, coughing, diaphoresis, fatigue, fever, headaches, joint swelling, myalgias, nausea, neck pain, numbness, rash, sore throat, urinary symptoms, vertigo, visual change, vomiting or weakness. Nothing aggravates the symptoms. She has tried acetaminophen (anbesol) for the symptoms. The treatment provided no relief. PAST MEDICAL HISTORY Diagnosis Date Anxiety and depression Hyperlipidemia Hypertension Hypothyroidism PAST SURGICAL HISTORY Procedure Laterality Date APPENDECTOMY ALLERGIES Patient has no known allergies. MEDICATIONS ibuprofen (MOTRIN ORAL) Take by mouth. cyclobenzaprine (FLEXERIL) 10 mg tablet Take 1 tablet by mouth three times daily as needed. cetirizine (ZYRTEC) 10 mg tablet Take 1 tablet by mouth once daily. LISINOPRIL ORAL Take by mouth. TRAZODONE HCL (TRAZODONE ORAL) Take by mouth. PRAVASTATIN SODIUM (PRAVASTATIN ORAL) Take by mouth. LEVOTHYROXINE SODIUM (LEVOTHYROXINE ORAL) Take by mouth. cloNIDine HCl (CATAPRES) 0.3 mg tablet Take 0.3 mg by mouth twice daily. VENLAFAXINE HCL (EFFEXOR XR ORAL) Take by mouth. amoxicillin-clavulanic acid (AUGMENTIN) 875-125 mg per tablet Take 1 tablet by mouth twice daily for 7 days. No family history on file. Social History Tobacco Use Smoking status: Never Smokeless tobacco: Never Substance Use Topics Alcohol use: Never Drug use: Never Review of Systems Constitutional: Negative for chills, diaphoresis, fatigue and fever. HENT: Positive for dental problem. Negative for congestion, postnasal drip, sinus pressure, sinus pain and sore throat. Eyes: Negative for photophobia, pain, discharge, redness and itching. Respiratory: Negative for apnea, cough, choking and chest tightness. Cardiovascular: Negative for chest pain, palpitations and leg swelling. Gastrointestinal: Positive for anal bleeding. Negative for abdominal pain, anorexia, change in bowel habit, constipation, diarrhea, nausea and vomiting. Musculoskeletal: Negative for arthralgias, joint swelling, myalgias and neck pain. Skin: Negative for color change, pallor and rash. Allergic/Immunologic: Negative for environmental allergies, food allergies and immunocompromised state. Neurological: Negative for dizziness, vertigo, facial asymmetry, weakness, light-headedness, numbness and headaches. Hematological: Negative for adenopathy. Does not bruise/bleed easily. Psychiatric/Behavioral: Negative for agitation and behavioral problems. Objective BP 122/80 Pulse 88 Temp 37.1 C (98.8 F) Resp 16 Wt 72.6 kg (160 lb) SpO2 98% Physical Exam Vitals and nursing note reviewed. Constitutional: General: She is not in acute distress. Appearance: Normal appearance. She is normal weight. She is not ill-appearing, toxic-appearing or diaphoretic. HENT: Head: Normocephalic and atraumatic. Right Ear: Ear canal and external ear normal. Left Ear: Ear canal and external ear normal. Nose: Nose normal. No congestion or rhinorrhea. Mouth/Throat: Mouth: Mucous membranes are moist. Pharynx: No oropharyngeal exudate or posterior oropharyngeal erythema. Eyes: General: Right eye: No discharge. Left eye: No discharge. Extraocular Movements: Extraocular movements intact. Conjunctiva/sclera: Conjunctivae normal. Pupils: Pupils are equal, round, and reactive to light. Cardiovascular: Rate and Rhythm: Normal rate and regular rhythm. Pulses: Normal pulses. Heart sounds: Normal heart sounds. No murmur heard. No friction rub. Pulmonary: Effort: Pulmonary effort is normal. No respiratory distress. Breath sounds: Normal breath sounds. No stridor. No wheezing, rhonchi or rales. Chest: Chest wall: No tenderness. Abdominal: General: Abdomen is flat. There is no distension. Palpations: Abdomen is soft. There is no mass. Tenderness: There is no abdominal tenderness. There is no right CVA tenderness, left CVA tenderness, guarding or rebound. Hernia: No hernia is present. Musculoskeletal: General: No swelling, tenderness, deformity or signs of injury. Normal range of motion. Cervical back: Normal range of motion and neck supple. No rigidity. Right lower leg: No edema. Left lower leg: No edema. Lymphadenopathy: Cervical: No cervical adenopathy. Skin: General: Skin is warm and dry. Capillary Refill: Capillary refill takes less than 2 seconds. Coloration: Skin is not jaundiced or pale. Findings: No bruising, erythema, lesion or rash. Neurological: General: No focal deficit present. Mental Status: She is alert and oriented to person, place, and time. Cranial Nerves: No cranial nerve deficit. Sensory: No sensory deficit. Motor: No weakness. Coordination: Coordination normal. Gait: Gait normal. Psychiatric: Mood and Affect: Mood normal. Behavior: Behavior normal. Thought Content: Thought content normal. Judgment: Judgment normal. Assessment and Plan ASSESSMENT/PLAN: 1. Pain, dental - ICD9: 525.9, ICD10: K08.89 Cracked tooth months ago Has a dental appointment Novemberpain States using Anbesol and Motrin Will cover with Augmentin. Provided list of additional free/reduced dental clinics Use OTC analgesics Discussed red flags Belén Florence APRN.CNP documented in this encounter [facility] 10-17-2021 Note HNO ID: [id number] Author: RT Deepthi(R) Service: ? Author Type: [employer] Type: Progress Notes Filed: 10/17/2021 1:07 PM Note Text: Radiology Service Progress Note PATIENT NAME: Jose Trinh DATE OF SERVICE: October 17, 2021 TIME: 12:54 PM PATIENT IDENTITY VERIFICATION COMPLETED USING TWO (2) IDENTIFIERS: Name and Date of confirmed by patient verbally. FALL SCREENING: Has the patient had 2 falls in the last year or 1 fall with injury or currently using an Ambulatory Assistive Device (Walker, Cane, Wheelchair, Crutches, etc.)? No PATIENT GENDER DATA: Female. status: : No status: NO. PATIENT RELEVANT IMPLANT DATA REVIEWED: Yes RADIOLOGY DEPARTMENT: General X-ray: Exam(s) Completed: Spine X-Ray(s): Cervical AP / LAT / OBL PERIPHERAL IV DATA: Not applicable SIGNED BY: RT Deepthi(R) October 17, 2021 12:54 PM [facility] 10-17-2021 Note HNO ID: [id number] Author: Marciano Serrato MD Service: ? Author Type: Physician Type: Progress Notes Filed: 10/17/2021 6:27 PM Note Text: Patient presents with: Pain: Pt reported neck ,bilateral shoulder pain rated 6, unknown time reported heavy lifting at work HPI: Neck pain: Duration: Chronic, flared up for 5 days Location: Bilateral neck and trapezius Character: aching and constant, no relief, does not feel able to continue working this weekend because of pain. 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 Remote xrays of neck? (30 years ago). PCP is [facility]. PAST MEDICAL HISTORY Diagnosis Date - Anxiety and depression - Hyperlipidemia - Hypertension - Hypothyroidism PAST SURGICAL HISTORY Procedure Laterality Date - APPENDECTOMY MEDICATIONS: ibuprofen (MOTRIN ORAL) Take by mouth. cetirizine (ZYRTEC) 10 mg tablet Take 1 tablet by mouth once daily. LISINOPRIL ORAL Take by mouth. TRAZODONE HCL (TRAZODONE ORAL) Take by mouth. PRAVASTATIN SODIUM (PRAVASTATIN ORAL) Take by mouth. LEVOTHYROXINE SODIUM (LEVOTHYROXINE ORAL) Take by mouth. cloNIDine HCl (CATAPRES) 0.3 mg tablet Take 0.3 mg by mouth twice daily. VENLAFAXINE HCL (EFFEXOR XR ORAL) Take by mouth. ALLERGIES: ALLERGIES No Known Allergies VITALS: BP 124/82 Pulse 88 Temp 37 ?C (98.6 ?F) Resp 18 Wt 72.2 kg (159 lb 3.2 oz) SpO2 97% PHYSICAL EXAM: GEN: pleasant, no acute distress, alert HEENT: PERRL, EOMI, MMM NECK: no lymphadenopathy, no thyromegaly Limited rotation or lateral extension. Discomfort with extension. Normal flexion. No midline spinous tenderness. HEART: regular rate, regular rhythm, no murmurs LUNGS: clear to auscultation, no wheezes or crackles, no increased WOB EXT: no clubbing, no cyanosis, no edema ASSESSMENT/PLAN: 1. Neck pain, chronic - ICD9: 723.1, 338.29, ICD10: M54.2, G89.29 (primary diagnosis) - MELOXICAM 15 MG TABLET -hold ibuprofen while taking meloxicam. She may use as needed acetaminophen. - CYCLOBENZAPRINE 10 MG TABLET -cautioned about drowsiness and to not drive or operate machinery while taking. - XR CERV OTHER 4V AP/LAT/OBL -degenerative changes (loss of disk space, foraminal narrowing). - CONSULT TO PHYSICAL THERAPY 2. Vomiting without nausea, unspecified vomiting type - ICD9: 787.03, ICD10: R11. - 2019 CORONAVIRUS Marciano Serrato MD [facility] 10-17-2021 History of Presen t illness Narrative Patient presents with: Pain: Pt reported neck ,bilateral shoulder pain rated 6, unknown time reported heavy lifting at work HPI: Neck pain: Duration: Chronic, flared up for 5 days Location: Bilateral neck and trapezius Character: aching and constant, no relief, does not feel able to continue working this weekend because of pain. 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 Remote xrays of neck? (30 years ago). PCP is [facility]. PAST MEDICAL HISTORY Diagnosis Date Anxiety and depression Hyperlipidemia Hypertension Hypothyroidism PAST SURGICAL HISTORY Procedure Laterality Date APPENDECTOMY MEDICATIONS: ibuprofen (MOTRIN ORAL) Take by mouth. cetirizine (ZYRTEC) 10 mg tablet Take 1 tablet by mouth once daily. LISINOPRIL ORAL Take by mouth. TRAZODONE HCL (TRAZODONE ORAL) Take by mouth. PRAVASTATIN SODIUM (PRAVASTATIN ORAL) Take by mouth. LEVOTHYROXINE SODIUM (LEVOTHYROXINE ORAL) Take by mouth. cloNIDine HCl (CATAPRES) 0.3 mg tablet Take 0.3 mg by mouth twice daily. VENLAFAXINE HCL (EFFEXOR XR ORAL) Take by mouth. ALLERGIES: ALLERGIES No Known Allergies VITALS: BP 124/82 Pulse 88 Temp 37 C (98.6 F) Resp 18 Wt 72.2 kg (159 lb 3.2 oz) SpO2 97% PHYSICAL EXAM: GEN: pleasant, no acute distress, alert HEENT: PERRL, EOMI, MMM NECK: no lymphadenopathy, no thyromegaly Limited rotation or lateral extension. Discomfort with extension. Normal flexion. No midline spinous tenderness. HEART: regular rate, regular rhythm, no murmurs LUNGS: clear to auscultation, no wheezes or crackles, no increased WOB EXT: no clubbing, no cyanosis, no edema ASSESSMENT/PLAN: 1. Neck pain, chronic - ICD9: 723.1, 338.29, ICD10: M54.2, G89.29 (primary diagnosis) - MELOXICAM 15 MG TABLET -hold ibuprofen while taking meloxicam. She may use as needed acetaminophen. - CYCLOBENZAPRINE 10 MG TABLET -cautioned about drowsiness and to not drive or operate machinery while taking. - XR CERV OTHER 4V AP/LAT/OBL -degenerative changes (loss of disk space, foraminal narrowing). - CONSULT TO PHYSICAL THERAPY 2. Vomiting without nausea, unspecified vomiting type - ICD9: 787.03, ICD10: R11.11 - 2019 CORONAVIRUS Marciano Serrato MD documented in this encounter [facility] Diagnosis Pain, dental- Primary Unspecified disorder of the teeth and supporting structures [facility] Diagnosis URI, acute- Primary Acute upper respiratory infections of unspecified site Acute non-recurrent sinusitis, unspecified location [facility] Diagnosis Acute cough- Primary documented in this encounter [facility] Summary Purpose Family History No Family History Records FoundNo Family History Records Found Advance Directives No Advanced Directives Records FoundNo Advanced Directives Records Found Reason for Referral Specialty Diagnoses / Procedures Referred By Contac t Referred To Contact [facility] Diagnoses Neck pain, chronic Procedures CONSULT TO PHYSICAL THERAPY PHYSICAL THERAPY EVALUATION HIGH COMPLEX 45 MINS Marciano Serrato MD [address] [place] [address] [facility] [address] [place] [id number] Referral ID Status Reason Start Date Expiration Date Visits Requested Visits Authorized [id number] Authorized Auto-Generat ed Referral 10/17/2021 02/12/2022 1 1 Specialty Diagnoses / Procedures Referred By Contac t Referred To Contact XR IMAGING Diagnoses Neck pain, chronic Procedures XR CERV OTHER 4V AP/LAT/OBL RADEX SPINE CERVICAL 4 OR 5 VIEWS Marciano Serrato MD [address] [place] [address] Xr Imaging Referral ID Status Reason Start Date Expiration Date V isits Requested Visits Authorized [id number] Closed Auto-Generate d Referral 10/17/2021 11/16/2022 1 1 Health Concerns Infection Onset Date Last Indicated Resolved Time COVID-19 Rule-Out 10/17/2021 10/17/2021 Infection Onset Date Last Indicated Resolved Time COVID-19 Rule-Out 01/25/2022 01/25/2022 Infection Onset Date Last Indicated Resolved Time COVID-19 Rule-Out 01/25/2022 01/25/2022 01/26/2022 10:36 AM EST Additional Source Comments INFORMATION SOURCE (unrecogn ized section and content) DATE CREATED AUTHOR AUTHOR'S ORGANIZ ATION 01/26/2022 [facility] Source Comments (unrecognize d section and content) In the event this informatio n is protected by the Federal Confidentiality of Alcohol and Drug Abuse Patient Records regulations: The Federal rules restrict any use of the information to criminally investigate or prosecute any alcohol or drug abuse patient.[facility] event this information is protected by the Federal Confidentiality of Alcohol and Drug Abuse Patient Records regulations: The Federal rules restrict any use of the information to criminally investigate or prosecute any alcohol or drug abuse patient.[facility] the event this information is protected by the Federal Confidentiality of Alcohol and Drug Abuse Patient Records regulations: The Federal rules restrict any use of the information to criminally investigate or prosecute any alcohol or drug abuse patient.[facility] the event this information is protected by the Federal Confidentiality of Alcohol and Drug Abuse Patient Records regulations: The Federal rules restrict any use of the information to criminally investigate or prosecute any alcohol or drug abuse patient.[facility] the event this information is protected by the Federal Confidentiality of Alcohol and Drug Abuse Patient Records regulations: The Federal rules restrict any use of the information to criminally investigate or prosecute any alcohol or drug abuse patient.[facility] Care Teams (unrecognized sec tion and content) Trolley Operator Relationship Specialty Start Date End Date Meli Miller CNP [address] [place] [address] Internal Medicine 08/10/20 Trolley Operator Relationship Specialty Start Date End Date Meli Miller CNP [address] [place] [address] Internal Medicine 08/10/20 Trolley Operator Relationship Specialty Start Date End Date Meli Miller CNP [address] [place] [address] Internal Medicine 08/10/20 Trolley Operator Relationship Specialty Start Date End Date Meli Miller, DANNY [address] [place] [address] Internal Medicine 08/10/20 Reason for Visit (unrecogniz ed section and content) Reason Comments Results Reason Comments Cough ST x2 weeks Reason Comments Dental Problem lower left front too th pain x thursday, rash on abdominal area -? medication reaction FOR RECORDS PERTAINING TO PATIENTS WHO ARE OR HAVE BEEN ENROLLED IN A CHEMICAL DEPENDENCY/SUBSTANCEABUSE PROGRAM, SOME INFORMATION MAY BE OMITTED. This clinical summary was aggregated from multiple sources. Caution should be exercised in using it in the provision of clinical care. This summary normalizes information from multiple sources, and as a consequence, information in this document may materially change the coding, format and clinical context of patient data. In addition, data may be omitted in some cases. CLINICAL DECISIONS SHOULD BE BASED ON THE PRIMARY CLINICAL RECORDS. [employer] [facility]. provides no warranty or guarantee of the accuracy or completeness of information in this document.
[2023-03-23 10:45] LABS: AST(SGOT) 26 U/L (15-37); Alanine Aminotransfer ALT/SGPT 33 U/L (13-56); Albumin, Serum 3.9 g/dL (3.2-5.0); Alkaline Phosphatase 104 U/L (45-117); Anion Gap 4 (5-15); BUN 18 mg/dL (7-18); BUN/Creat Ratio 19.3 RATIO (10-20); Calcium,Total 9.7 mg/dL (8.5-10.1); Chloride 105 mmol/L (98-107); Cholesterol 238 mg/dL (200); Creatinine, Serum 0.93 mg/dL (0.55-1.02); EST Glomerular Filtration Rate 64 mL/min (>60); Est Glom Filt Rate - Afr Amer 78 mL/min (>60); Globulin 4.1 g/dL (2.2-4.2); Glucose 106 mg/dL (74-106); High Density Lipoprotein 48 mg/dL; Potassium 4.4 mmol/L (3.5-5.1); Sodium Level 138 mmol/L (136-145); T4 Free Direct 0.89 ng/dL (0.76-1.46); Thyroid Stim Hormone (TSH) 1.83 uIU/mL (0.358-3.74); Triglycerides 228 mg/dL; Very Low Density Lipoprotein 46 mg/dL (5-40)
[2023-03-23 11:01] LABS: Hemoglobin A1c 5.5 % (3.8-5.6)
== END | disposition home or self-care (01) ==
PROVIDERS: Nurse Practitioner Family
DX: E03.9 Hypothyroidism, unspecified (principal); I10 Essential (primary) hypertension; Z13.1 Encounter for screening for diabetes mellitus; E78.5 Hyperlipidemia, unspecified
CPT/HCPCS: 36415; 80053; 80061; 83036; 84439; 84443; 85025

== ENCOUNTER → 2023-10-02 | Outpatient (CLI) | payer MEDICAID, SELFPAY ==
--- NOTE | 2023-10-02 12:27 | RAD_ITS ---
STUDY: X-RAY - CERVICAL SPINE REASON FOR EXAM: Female, 63 years old. CERVICALGIA TECHNIQUE: 5 view(s) of the cervical spine were obtained. COMPARISON: None FINDINGS: Normal anterior atlantoaxial articulation. Normal odontoid process. Normal cervical lordosis. There is multi-level endplate spondylosis. There is multi-level degenerative disc disease with multilevel disc space narrowing. There is multi-level osseous foraminal stenosis. The soft tissue structures are unremarkable. RAD/Cerv Spine 4 or 5 Views IMPRESSION: Degenerative disc disease. MRI may be useful. Electronically Signed: Feliciano Baez MD at 17:38 EDT ,
== END | disposition home or self-care (01) ==
LOC: RAD 12:24
PROVIDERS: PCP Nurse Practitioner Family; Referring Provider Nurse Practitioner Family; Visit Provider Nurse Practitioner Family
DX: M54.2 Cervicalgia (principal)
CPT/HCPCS: 72050

== ENCOUNTER → 2023-10-06 | Outpatient (CLI) | payer MEDICAID, SELFPAY ==
[2023-10-06 17:04] LABS: Absolute Lymphocyte Count 1.79 X10^3/uL (0.83-4.51); Basophil# 0.04 X10^3/uL; Basophil% 0.3 % (0-1); Eosinophil# 0.04 X10^3/uL; Eosinophils% 0.3 % (0-5); Hematocrit 40.5 % (37-47); Hemoglobin 13.4 g/dL (12.0-15.0); Lymphocyte # 1.79 X10^3/ul (0.83-4.51); Lymphocyte % 15.6 % (19-41); Mean Corp Hgb Conc 33.1 g/dL (32-36); Mean Corpuscular Hgb 28.2 pg (27.0-32.0); Mean Corpuscular Volume 85.1 fL (81-99); Mean Platelet Vol. 9.4 fl (6.2-12.0); Monocyte# 0.54 X10^3/uL; Monocyte% 4.7 % (0-10); NRBC Flagged by Analyzer 0 % (0-5); Neutrophil # 8.99 X10^3/uL (2.7-7.7); Neutrophil % 78.6 % (47-70); Platelet Count 272 K/mm3 (150-450); RBC Distribution Width CV 12.6 % (11.6-14.6); RBC Distribution Width SD 38.8 fl (35.1-43.9); Red Blood Count 4.76 M/mm3 (4.2-5.4); White Blood Count 11.5 K/mm3 (4.4-11.0)
[2023-10-06 17:26] LABS: Vitamin D,25 Hydroxy 71.1 ng/mL
[2023-10-06 17:30] LABS: AST(SGOT) 26 U/L (15-37); Alanine Aminotransfer ALT/SGPT 41 U/L (13-56); Albumin, Serum 3.9 g/dL (3.2-5.0); Alkaline Phosphatase 76 U/L (45-117); Anion Gap 8 (5-15); BUN 19 mg/dL (7-18); BUN/Creat Ratio 19.8 RATIO (10-20); Calcium,Total 9.5 mg/dL (8.5-10.1); Chloride 106 mmol/L (98-107); Creatinine, Serum 0.96 mg/dL (0.55-1.02); EST Glomerular Filtration Rate 62 mL/min (>60); Est Glom Filt Rate - Afr Amer 75 mL/min (>60); Globulin 3.8 g/dL (2.2-4.2); Glucose 86 mg/dL (74-106); Potassium 3.8 mmol/L (3.5-5.1); Protein, Total 7.7 g/dL (6.4-8.2); Sodium Level 141 mmol/L (136-145); T4 Free Direct 0.89 ng/dL (0.76-1.46); Thyroid Stim Hormone (TSH) 0.66 uIU/mL (0.358-3.74)
[2023-10-06 18:07] LABS: Hemoglobin A1c 5.3 % (3.8-5.6)
== END | disposition home or self-care (01) ==
LOC: VSLAB 14:35
PROVIDERS: PCP Nurse Practitioner Family; Visit Provider Nurse Practitioner Family
DX: Z13.1 Encounter for screening for diabetes mellitus (principal); E03.9 Hypothyroidism, unspecified; E55.9 Vitamin D deficiency, unspecified; I10 Essential (primary) hypertension
CPT/HCPCS: 36415; 80053; 82306; 83036; 84439; 84443; 85025

== ENCOUNTER 2024-12-16 11:42 | Emergency (ER) | payer MEDICARE, MEDICAID, SELFPAY ==
[2024-12-16 11:43] VITALS: BP 133/95; PULSE 86; RESP 18; TEMP 36.6; O2SAT 99; BMI 26.9
--- NOTE | 2024-12-16 12:18 | EDS_ITS ---
HPI History of Present Illness Chief Complaint: Upper Extremity Injury [facility] Medical History Hypertension Home Medications ?Medication ?Instructions ?Recorded ?Last Taken ?Type cetirizine 10 mg tablet 10 mg PO DAILY PRN Allergies 05/07/19 Unknown History clonidine HCl 0.3 mg tablet 0.3 mg PO DAILY 05/07/19 U nknown History clotrimazole 10 mg chastity 10 mg MUCOUS MEM 5X/DAY ##30 05/07/19 Unknown Rx levothyroxine 88 mcg tablet 88 mcg PO DAILY 05/07/19 U nknown History lisinopril 5 mg tablet 5 mg PO DAILY 05/07/19 Unkno wn History pravastatin 40 mg tablet 40 mg PO QHS 05/07/19 Unknow n History trazodone 100 mg tablet 150 mg PO QHS 05/07/19 Unkno wn History venlafaxine 37.5 mg 75 mg PO BID 05/07/19 Unknow n History capsule,extended release 24 hr Allergy/AdvReac Type Severity Reaction Status Date / Time No Known Allergies Allergy Verified 12/16/24 11:46 Social History Smoking Status: Current every day smoker tobacco type: cigarettes EXAM Physical Exam Const Vital Signs: 12/16/24 11:43 Temperature 97.8 F Temperature Source Oral Pulse Rate 86 Respiratory Rate 18 Blood Pressure 133/95 H Blood Pressure Mean 107 Pulse Ox 99 Oxygen Delivery Method Room Air Discharge Plan Triage Chief Complaint: Upper Extremity Injury ED Provider: Yary Gaviria Dx/Rx/DC Orders Prescriptions: No Action venlafaxine 37.5 MG capsule 75 mg PO BID cetirizine 10 MG tablet 10 mg PO DAILY PRN (Reason: Allergies) pravastatin 40 MG tablet 40 mg PO QHS clonidine HCl 0.3 mg tablet 0.3 mg PO DAILY levothyroxine 88 MCG tablet 88 mcg PO DAILY trazodone 100 MG tablet 150 mg PO QHS lisinopril 5 MG tablet 5 mg PO DAILY clotrimazole 10 MG chastity 10 mg MUCOUS MEM 5X/DAY Qty: 30 0RF Primary Care Provider: Belén Branch Referrals: Belén Branch, SENIOR NET C DEVELOPER-C [Primary Care Provider, Family Practice] Print Language: Macanese
--- NOTE | 2024-12-16 12:18 | EX.ED.UPPERE ---
HPI History of Present Illness Chief Complaint: Upper Extremity Injury Narrative Narrative: Patient is a 64-year-old female presenting to the emergency department for a left index finger injury. Patient's last tetanus shot was 3 years ago she reports. Patient states she was trying to put a screen in a window when the window dropped down and crushed her left finger. She denies any other injuries. She went to urgent care before this and they sent her here for evaluation. She did not take anything for pain. Tetanus Immunization: <5 years [facility] Medical History Hypertension Home Medications ?Medication ?Instructions ?Recorded ?Last Taken ?Type cetirizine 10 mg tablet 10 mg PO DAILY PRN Allergies 05/07/19 Unknown History clonidine HCl 0.3 mg tablet 0.3 mg PO DAILY 05/07/19 Unknown History clotrimazole 10 mg chastity 10 mg MUCOUS MEM 5X/DAY ##30 05/07/19 Unknown Rx levothyroxine 88 mcg tablet 88 mcg PO DAILY 05/07/19 Unknown History lisinopril 5 mg tablet 5 mg PO DAILY 05/07/19 Unknown History pravastatin 40 mg tablet 40 mg PO QHS 05/07/19 Unknown History trazodone 100 mg tablet 150 mg PO QHS 05/07/19 Unknown History venlafaxine 37.5 mg 75 mg PO BID 05/07/19 Unknown History capsule,extended release 24 hr Allergy/AdvReac Type Severity Reaction Status Date / Time No Known Allergies Allergy Verified 12/16/24 11:46 Social History Smoking Status: Current every day smoker tobacco type: cigarettes ROS ROS ED ROS Narrative see HPI EXAM Physical Exam Narrative Exam Narrative: Vital signs: Reviewed General: Alert and orientedx3. No acute distress HEENT: Head is normocephalic and atraumatic, sinuses nontender, pupils equal round and reactive. Nares are patent. Oropharynx and throat exams normal. Neck: Supple without lymphadenopathy nontender Cardiovascular: Regular rate and rhythm, no murmurs. No rubs or gallops. Normal S1 and S2 Respiratory: Clear to auscultation bilaterally. No wheezes, rales, rhonchi Abdominal: Soft and nontender. Normal bowel sounds. No guarding or rebound. Nonsurgical abdomen Extremities: 5 cm irregular deep laceration down to tendon to the dorsal aspect of the left index finger. No tendon involvement. Flexion and extension at all joints in the index finger intact. No FB noted on wound exploration. Sensation intact in radial, median and ulnar distributions. Radial and ulnar pulses intact bilaterally. No active bleeding. Neurological: Cranial nerves II through XII are grossly intact. Normal strength and sensation. Normal cerebellar function The rest of the physical exam is unremarkable Const Vital Signs: 12/16/24 11:43 Temperature 97.8 F Temperature Source Oral Pulse Rate 86 Respiratory Rate 18 Blood Pressure 133/95 H Blood Pressure Mean 107 Pulse Ox 99 Oxygen Delivery Method Room Air MDM MDM MDM Narrative Medical decision making narrative: Patient is a 64-year-old female presenting to the emergency department for a left index finger injury. Patient was seen and examined. Vitals are stable. Patient resting bed comfortably no acute distress. X-ray was obtained. X-ray reviewed by myself, no fractures or dislocations seen. Radiology read with soft tissue laceration. No foreign body. No fracture Tetanus vaccine is up to date in the last 3 years. Patient given IM Toradol for pain control and will digitally block the finger for additional pain control to further evaluate the injury. Digital block was performed on the index finger with 1% lidocaine without epinephrine. Analgesia was obtained with this. Wound was explored deeper. No foreign body seen. No tendon injury. Wound was copiously irrigated. 10 4.0 Ethilon sutures in simple interrupted fashion were placed. Dressing was placed by nursing staff. Patient was given wound care instructions including to watch for redness, drainage or warmth and to have the sutures removed in 7 to 10 days by her primary care doctor. Patient discharged from the Emergency Department. I do not feel that the patient's evaluation reveals any acute reason for admission at this time. I instructed them to either follow-up with their primary care physician or promptly return to the Emergency Department for reevaluation should symptoms worsen or new symptoms develop. I explained what symptoms would indicate the need to return to the emergency department. Shared decision making was used. The patient voiced understanding of the treatment plan and is agreeable with it. Clinical impression Finger laceration History & Record Review Discussion w/independent historian: Patient and Family Radiography X-Ray: Read by ED Physician and No Fracture Discharge Plan Triage Chief Complaint: Upper Extremity Injury ED Provider: Yary Gaviria Dx/Rx/DC Orders Clinical Impression: Finger laceration Instructions: ED Laceration Extremity, ED Wound Care Prescriptions: No Action venlafaxine 37.5 MG capsule 75 mg PO BID cetirizine 10 MG tablet 10 mg PO DAILY PRN (Reason: Allergies) pravastatin 40 MG tablet 40 mg PO QHS clonidine HCl 0.3 mg tablet 0.3 mg PO DAILY levothyroxine 88 MCG tablet 88 mcg PO DAILY trazodone 100 MG tablet 150 mg PO QHS lisinopril 5 MG tablet 5 mg PO DAILY clotrimazole 10 MG chastity 10 mg MUCOUS MEM 5X/DAY Qty: 30 0RF Stand Alone Forms: ED Work / School Excuse Primary Care Provider: Belén Branch Referrals: Belén Branch, INVENTORY ACCOUNTANT-C [Primary Care Provider, Family Practice] - 2 Days Activity Restrictions/Additional Instructions: Watch the cut for signs of infection which include redness, drainage or warmth. Need to have the sutures removed in 7 to 10 days by your primary care doctor or you can come back here. Follow-up with your primary care doctor soon as possible. Your evaluation in the Emergency Department did not reveal any acute reason for admission. However, I want to emphasize that you may be early in the course of a disease process or illness even if it is not present. For this reason you should follow-up within 24 hours for reevaluation with either your primary care physician or if necessary back here in the Emergency Department. You should return to the Emergency Department immediately if your symptoms worsen or new symptoms develop. Print Language: Sami Disposition Disposition: Home, Self Care Discharge Date/Time: 12/16/24 14:28
[2024-12-16] MEDS: Lidocaine 1% (20 ml mdv) 20 ML Vial 10 ML INFILT (12:23)
[2024-12-16] MEDS: Ketorolac 30 MG/ML Syringe IM (12:23)
--- NOTE | 2024-12-16 12:40 | RAD_ITS ---
PROCEDURE: FINGER(S) MIN 2 VIEWS 12/16/2024 REASON FOR EXAM: FINGER INURY TECHNIQUE: Procedure Code: RADFIN Modality: DX Procedure: FINGER(S) MIN 2 VIEWS Laterality: Left COMPARISON: None FINDINGS: Bones: No fracture Joints: Normal Soft tissues: Laceration dorsal to the proximal interphalangeal joint and middle phalanx. Other: No foreign body. RAD/Finger(s) Min 2 Views IMPRESSION: Soft tissue laceration. No foreign body. No fracture Reading Location: [id number]
[2024-12-16 14:10] VITALS: BP 140/89; PULSE 81; RESP 16; O2SAT 99
[2024-12-16 14:20] VITALS: BP 140/89; PULSE 81; RESP 16; TEMP 36.3; O2SAT 99
== END 2024-12-16 14:28 | disposition home or self-care (01) ==
PROVIDERS: Emergency Provider Student in an Organized Health Care Education/Training Program; PCP Nurse Practitioner Family; Visit Provider Student in an Organized Health Care Education/Training Program
DX: S61.211A Laceration without foreign body of left index finger without damage to nail, initial encounter (principal); I10 Essential (primary) hypertension; Z79.899 Other long term (current) drug therapy; F17.210 Nicotine dependence, cigarettes, uncomplicated; W23.2XXA Caught, crushed, jammed or pinched between a moving and stationary object, initial encounter; Y93.89 Activity, other specified
CPT/HCPCS: 12002; 73140; 96372; 99282